=== PATIENT | male | born 1960 | race Caucasian/White ===

== ENCOUNTER 2016-12-09 09:48 | Observation (INO) | payer OTHER ==
--- NOTE | 2016-12-09 10:06 | ER Document Report ---
ED Medical Screen (RME) - General Chief Complaint: Numbness of Face Stated Complaint: RIGHT SIDE FACE AND ARM NUMBNESS Time Seen by Provider: 12/09/16 10:01 Mode of Arrival: Ambulatory Information source: Patient Notes: 56-year-old male presents to ED for right facial shoulder and arm numbness and tingling for about 4-5 seconds. States he felt like his head was in a barrel. States this is all relieved now. States last night he had episode when his heart beat really really fast for a few seconds and then was gone denied any chest pain. States that he has had this several times before but not for as long as it was last night. Has a history of high blood pressure otherwise he is very healthy and takes lisinopril for the high blood pressure. I have greeted and performed a rapid initial assessment of this patient. A comprehensive ED assessment and evaluation of the patient, analysis of test results and completion of medical decision making process will be conducted by an additional ED providers. TRAVEL OUTSIDE OF THE [place] IN LAST 30 DAYS: No - Related Data Allergies/Adverse Reactions: No Known Allergies Allergy (Verified 12/09/16 09:51) Past Medical History - Past Medical History Cardiac Medical History: Reports: Hx Coronary Artery Disease, Hx Hypertension Denies: Hx Heart Attack Pulmonary Medical History: Denies: Hx Asthma, Hx Bronchitis, Hx COPD, Hx Pneumonia Neurological Medical History: Denies: Hx Cerebrovascular Accident, Hx Seizures Renal/ Medical History: Denies: Hx Peritoneal Dialysis Musculoskeltal Medical History: Denies Hx Arthritis - Immunizations Hx Diphtheria, Pertussis, Tetanus Vaccination: No Physical Exam - Vital signs Vitals: Temp Pulse Resp BP Pulse Ox 98.0 F 63 18 136/79 H 98 12/09/16 09:51 12/09/16 09:51 12/09/16 09:51 12/09/16 09:51 12/09/16 09:51 Course - Vital Signs Vital signs: Temp Pulse Resp BP Pulse Ox 98.0 F 63 18 136/79 H 98 12/09/16 09:51 12/09/16 09:51 12/09/16 09:51 12/09/16 09:51 12/09/16 09:51
--- NOTE | 2016-12-09 10:30 | RADIOLOGY REPORT (SQ) ---
EXAM DESCRIPTION: CHEST PA/LAT COMPLETED DATE/TIME: 12/09/2016 10:12 am REASON FOR STUDY: palpitations COMPARISON: None. EXAM PARAMETERS: NUMBER OF VIEWS: two views TECHNIQUE: Digital Frontal and Lateral radiographic views of the chest acquired. RADIATION DOSE: NA LIMITATIONS: none FINDINGS: LUNGS AND PLEURA: No opacities, masses or pneumothorax. No pleural effusion. MEDIASTINUM AND HILAR STRUCTURES: No masses or contour abnormalities. HEART AND VASCULAR STRUCTURES: Heart normal size. No evidence for failure. BONES: No acute findings. HARDWARE: None in the chest. OTHER: No other significant finding. IMPRESSION: NO SIGNIFICANT RADIOGRAPHIC FINDING IN THE CHEST. TECHNICAL DOCUMENTATION: JOB ID: [id number] [employer]- All Rights Reserved
[2016-12-09 10:42] LABS: ABSOLUTE BASOPHILS # (AUTO) 0.1 10^3/uL (0.0-0.2); ABSOLUTE EOSINOPHILS # (AUTO) 0.1 10^3/uL (0.0-0.6); ABSOLUTE LYMPHOCYTES (AUTO) 1.5 10^3/uL (0.5-4.7); ABSOLUTE MONOCYTES (AUTO) 0.6 10^3/uL (0.1-1.4); ABSOLUTE NEUT (AUTO) 4.9 10^3/uL (1.7-8.2); BASOPHILS % (AUTO) 0.8 % (0-2); EOSINOPHILS % (AUTO) 1.9 % (0-6); HEMATOCRIT 40.4 % (37.9-51.0); HEMOGLOBIN 13.7 g/dL (13.5-17.0); HGB HCT DIFFERENCE 0.7; LYMPHOCYTES % (AUTO) 21.1 % (13-45); MEAN CORPUSCULAR HEMOGLOBIN 30.9 pg (27.0-33.4); MEAN CORPUSCULAR VOLUME 91 fl (80-97); MONOCYTES % (AUTO) 8.7 % (3-13); RED BLOOD COUNT 4.44 10^6/uL (4.35-5.55); RED CELL DISTRIBUTION WIDTH 12.9 % (11.5-14.0); SEGMENTED NEUTROPHILS % (AUTO) 67.5 % (42-78); WHITE BLOOD COUNT 7.2 10^3/uL (4.0-10.5)
--- NOTE | 2016-12-09 10:50 | RADIOLOGY REPORT (SQ) ---
EXAM DESCRIPTION: CT HEAD WITHOUT COMPLETED DATE/TIME: 12/09/2016 10:40 am REASON FOR STUDY: numbness tingling to right face shoulder and arm COMPARISON: None. TECHNIQUE: Axial images acquired through the brain without intravenous contrast. Images reviewed wi th bone, brain and subdural windows. Images stored on PACS. All CT scanners at this facility use dose modulation, iterative reconstruction, and/or weight based d osing when appropriate to reduce radiation dose to as low as reasonably achievable (ALARA). [facility]: Dose Right [facility]: CareDose [facility]: Dose Right [facility]: Teradose 4D [facility]: FanDistro RADIATION DOSE: 64.61 mGy. LIMITATIONS: None. FINDINGS: VENTRICLES: Normal size and contour. CEREBRUM: No masses. No hemorrhage. No midline shift. Normal ocampo/white matter differentiation. N o evidence for acute infarction. CEREBELLUM: No masses. No hemorrhage. No alteration of density. No evidence for acute infarction. EXTRAAXIAL SPACES: No fluid collections. No masses. ORBITS AND GLOBE: No intra- or extraconal masses. Normal contour of globe without masses. CALVARIUM: No fracture. PARANASAL SINUSES: No fluid or mucosal thickening. SOFT TISSUES: No mass or hematoma. OTHER: No other significant finding. IMPRESSION: NORMAL BRAIN CT WITHOUT CONTRAST. TECHNICAL DOCUMENTATION: JOB ID: [id number] Quality ID # [id number]: Final reports with documentation of one or more dose reduction techniques (e.g., Au tomated exposure control, adjustment of the mA and/or kV according to patient size, use of iterative reconstruction technique) 2010 [employer]- All Rights Reserved
[2016-12-09 10:58] LABS: PARTIAL THROMBOPLASTIN TIME 27.5 SEC (23.5-35.8); PROTHROMBIN TIME 12.4 SEC (11.4-15.4)
[2016-12-09 11:06] LABS: ALANINE AMINOTRANSFERASE 33 U/L (21-72); ALBUMIN 4.3 g/dL (3.5-5.0); ALKALINE PHOSPHATASE 43 U/L (38-126); ANION GAP 11 (5-19); ASPARTATE AMINO TRANSFERASE 29 U/L (17-59); BILIRUBIN,DIRECT 0.3 mg/dL (0.0-0.4); BILIRUBIN,TOTAL 0.6 mg/dL (0.2-1.3); BLOOD UREA NITROGEN 21 mg/dL (7-20); CALCIUM 9.4 mg/dL (8.4-10.2); CARBON DIOXIDE 25 mmol/L (22-30); CHLORIDE 104 mmol/L (98-107); CREATINE KINASE 327 U/L (55-170); GLUCOSE 96 mg/dL (75-110); POTASSIUM 4.7 mmol/L (3.6-5.0)
[2016-12-09 11:16] LABS: CREATINE KINASE MB 2.47 ng/mL (<4.55)
--- NOTE | 2016-12-09 11:20 | ER Document Report ---
ED Neuro Symptoms/Deficit - General Mode of Arrival: Ambulatory TRAVEL OUTSIDE OF THE [place] IN LAST 30 DAYS: No - HPI Patient complains to provider of: Other - right sided tingling and racing heart Onset: Other - see notes above Duration: Better Loss of consciousness: No loss of consciousness Was STROKE ALERT Called: Yes Baseline Cognitive: Alert, oriented X 3 Baseline Gait: Walks w/o assistance Alert To: Name/Voice Patient Orientation: Person, Place, Time, Events Altered sensation: RUE, R facial Associated symptoms: Other - see notes above <HAILE MILLER - Last Filed: 12/09/16 15:53> <TRISH MENDOZA - Last Filed: 12/09/16 15:55> - General Chief Complaint: Numbness of Face Stated Complaint: RIGHT SIDE FACE AND ARM NUMBNESS Time Seen by Provider: 12/09/16 11:01 Notes: 56 year old male with history of hypertension presents to the ED complaining of tingling from the right face which radiated down to the right hand which started at 0900 this morning while talking to a colleague at work. Patient reports that the tingling lasted for approximately 4-5 seconds, but then dissipated as quickly as it came on. Patient reports to having a 'lightheaded funny feeling' during the episode. Patient denies facial droop, trouble walking , or any pain. Patient additionally reports having a racing heart 2-3 nights ago while resting in bed with no associated shortness of breath. Patient denies a racing heart currently. Patient reports not having a primary care provider for the past year because his provider has moved. (HAILE MILLER) - Related Data Allergies/Adverse Reactions: No Known Allergies Allergy (Verified 12/09/16 09:51) Home Medications: Current Home Medications Lisinopril [Zestril] 10 mg PO DAILY 12/09/16 [History] Past Medical History - General Information source: Patient - Social History Smoking Status: Never Smoker Chew tobacco use (# tins/day): Yes Frequency of alcohol use: Occasional Family History: Other - Father has atrial fibrillation Patient has suicidal ideation: No Patient has homicidal ideation: No - Past Medical History Cardiac Medical History: Reports: Hx Coronary Artery Disease, Hx Hypertension Denies: Hx Heart Attack Neurological Medical History: Denies: Hx Cerebrovascular Accident Renal/ Medical History: Denies: Hx Peritoneal Dialysis Musculoskeltal Medical History: Denies Hx Arthritis Surgical Hx: Negative - Immunizations Hx Diphtheria, Pertussis, Tetanus Vaccination: No <MILLERHAILE - Last Filed: 12/09/16 15:53> Review of Systems - Review of Systems Constitutional: No symptoms reported EENT: No symptoms reported Cardiovascular: See HPI, Heart racing, Lightheaded Respiratory: No symptoms reported Gastrointestinal: No symptoms reported Genitourinary: No symptoms reported Male Genitourinary: No symptoms reported Musculoskeletal: No symptoms reported Skin: No symptoms reported Hematologic/Lymphatic: No symptoms reported Neurological/Psychological: See HPI, Tingling - radiating from right forehead to right hand. denies: Weakness, Gait changes -: Yes All other systems reviewed and negative <MILLERHAILE - Last Filed: 12/09/16 15:53> Physical Exam <HAILE MILLER - Last Filed: 12/09/16 15:53> <TRISH MENDOZA - Last Filed: 12/09/16 15:55> - Vital signs Vitals: Temp Pulse Resp BP Pulse Ox 98.0 F 63 18 136/79 H 98 12/09/16 09:51 12/09/16 09:51 12/09/16 09:51 12/09/16 09:51 12/09/16 09:51 - Notes Notes: GENERAL: Alert, interacts well. No acute distress. HEAD: Normocephalic, atraumatic. EYES: Pupils equal, round, and reactive to light. Extraocular movements intact. ENT: Oral mucosa moist, tongue midline. NECK: Full range of motion. Supple. Trachea midline. LUNGS: Clear to auscultation bilaterally, no wheezes, rales, or rhonchi. No respiratory distress. HEART: Regular rate and rhythm. No murmurs, gallops, or rubs. ABDOMEN: Soft, non-tender. Non-distended. Bowel sounds present in all 4 quadrants. EXTREMITIES: Moves all 4 extremities spontaneously. No edema, radial and dorsalis pedis pulses 2/4 bilaterally. No cyanosis. NEUROLOGICAL: Alert and oriented x3. Normal speech. Cranial nerves II through XII grossly intact. Finger to nose intact, dorsiflexion and plantar flexion normal, 5/5 motor strength, equal benefits counselor, heel-alexandre normal, negative pronator drift, sensation intact. Sharp-dull sensation to the face and right lower extremity intact. Slight decrease to the sharp-dull sensation test to the left medial ankle. PSYCH: Normal affect, normal mood. SKIN: Warm, dry, normal turgor. No rashes or lesions noted. (HAILE MILLER) Course - Laboratory Result Diagrams: 12/09/16 10:15 12/09/16 10:15 - Consults Dr. Mcwilliams Time consulted: 12:30 <HAILE MILLER - Last Filed: 12/09/16 15:53> - Laboratory Result Diagrams: 12/09/16 10:15 12/09/16 10:15 <TRISH MENDOZA - Last Filed: 12/09/16 15:55> - Re-evaluation Re-evalutation: 12/09/16 12:38 The unremarkable, coags normal, CMP grossly unremarkable, thyroid function normal, chest x-ray unremarkable, head CT does not show any acute hemorrhage or signs of a subacute infarction. EKG is nonischemic. Symptoms are suggestive of a TIA as he had right-sided numbness that affected his face and his arm, patient now tells me that he has also been having some intermittent numbness of his right leg over the past few weeks to months. I did discuss this patient with Dr. Mcwilliams who agrees to bring the patient into his service in observation status. Patient has been given aspirin. 12/09/16 12:39 Not a candidate for TPA as all symptoms have resolved. (TRISH MENDOZA) - Vital Signs Vital signs: Temp Pulse Resp BP Pulse Ox 98.0 F 80 18 128/93 H 99 12/09/16 09:51 12/09/16 14:21 12/09/16 14:21 12/09/16 14:21 12/09/16 14:21 - Laboratory Laboratory results interpreted by me: 12/09/16 10:15 BUN 21 H Creatine Kinase 327 H - EKG Interpretation by Me Additional EKG results interpreted by me: 12/09/16 12:39 EKG shows sinus bradycardia at a rate of 55, left axis deviation, normal intervals, T-wave inversions noted in lead III and aVF no ST segment elevations or depressions per my interpretation. (TRISH MENDOZA) - Consults Dr. Mcwilliams Reason for consultation: 12/09/16 12:30 Patient was discussed with Dr. Mcwilliams who will accept the patient to telemetry. (HAILE MILLER) Discharge <HAILE MILLER - Last Filed: 12/09/16 15:53> - Discharge Admitting Provider: Hospitalist - Dr. Mcwilliams Unit Admitted: Telemetry <TRISH MENDOZA - Last Filed: 12/09/16 15:55> - Discharge Clinical Impression: TIA (transient ischemic attack) Qualifiers: Transient cerebral ischemia type: unspecified Qualified Code(s): G45.9 - Transient cerebral ischemic attack, unspecified Condition: Fair Disposition: ADMITTED OBSERVATION Scribe Attestation: 12/09/16 12:40 (TRISH MENDOZA) ED Alteplase Inc/Exc Criteria - Date/Time patient last known well: Date/Time: 84412/09/2016 - Date/Time patient arrived in ED: _: 0948 12/09/2016 - Inclusion Criteria: 1: Patient presented to ED within 3 hours of acute ischemic stroke symptom onset ? -: Yes 2: Did baseline CT exclude intracranial hemorrhage and/or other risk factors? -: Yes 3: Is the age of the patient 18 years of age or greater? -: Yes : If any of the above questions are answered "NO" then stop, patient is not a candidate for Alteplase, : If all of the above questions are answered "YES" then continue with Exclusion Criteria. - Exclusion Criteria: 1: Is there evidence of intracranial hemorrhage on baseline CT? -: No 2: Is there suspicion of subarachnoid hemorrhage (even if CT negative)? -: No 3: Is there a history of serious head trauma, recent previous stroke or IN within 3 months? -: No 4: Does the patient have a clinical presentation consistent with IN or post-IN pericarditis? -: No 5: Is there history of intracranial hemorrhage? -: No 6: On repeated measurement is Systolic BP greater than 185mmHg or Diastolic BP greater that 110 mmHg and is aggressive treatment needed to reduce blood pressure to these limits (e.g. constant infusion of an anti-hypertensive)? -: No 7: Did the patient awake with stroke symptoms? -: No 8: Has the patient had a lumbar puncture or an arterial puncture at a non- compressile site within 7 days? -: No 9: With in the last 14 days did the patient have surgery or major trauma? -: No 10: Is the patient or less than 2 weeks? -: No 11: Was there any active bleeding or acute trauma? -: No 12: Does the patient have intracranial neoplasm, arteriovenous malformation or aneurysm? -: No 13: Does the patient have abnormal glucose (less than 50 or greater than 400mg/ dl)? Record glucose in Comment. -: No 14: Patient has rapidly improving symptoms at the time Alteplase is to be Administered. -: Yes 15: Does the patient have any risks for bleeding, including but not limited to: a.: Current use of Coumadin with PT greater than 15 seconds or INR greater than 1.7. b.: Current use of Pradaxa (Dabigatran). c.: Heparin administereed within the past 48 hours and PTT elevated. d.: Platelet count less than 100,000/mm. e.: Major surgery or serious trauma within 14 days. f.: Gastrointestinal or gynecological urinary bleeding within 14 days. g.: Myocardial Infarction (IN) within 3 months. -: No : If the answer to any of the above questions is "YES" then stop, the patient is not a candidate for Alteplase. : If the answer to all of the above questions is "NO" then the patient may be eligible for the Administration of Alteplase. : If the patient is noted to have seizure activity at onset of Stroke symptoms; Consult Neurologist for further evaluation. - The patient is: -: Included and is eligible to receive Alteplase. *Initiate bed placement at higher level of care* --: No Reviewd risks & benefits of thrombolytic therapy: I have reviewed the risks and benefits of thrombolytic therapy with the patient and/or his/her family. No -: Excluded and not eligible to receive Alteplase for the above exclusions. --: Yes - TIA symptoms resolved -: Excluded and not eligible to receive Alteplase for other reasons (specify in comments): --: No - Diagnosis of TIA: -: Patient presented with transient symptoms that are now resolved and no other neurologic findings are currently present. List symptoms in comments. -: Yes -: Patient is NOT a candidate for tPA. -: No -: DrInga ____(put name in comment) has been consulted for admission and continued evaluation of risk factor assessment. <HAILE MILLER - Last Filed: 12/09/16 15:53> - Diagnosis of TIA: -: Patient presented with transient symptoms that are now resolved and no other neurologic findings are currently present. List symptoms in comments. -: Patient is NOT a candidate for tPA. -: ____(put name in comment) has been consulted for admission and continued evaluation of risk factor assessment. Comment: Oj <TRISH MENDOZA - Last Filed: 12/09/16 15:55> Scribe Documentation - Scribe Written by Scribe:: Ioana Orosco, 12/09/2016 1155 acting as scribe for DrInga:: Anais <HAILE MILLER - Last Filed: 12/09/16 15:53> ED NIH Stroke Scale - NIH Stroke Scale When completed:: Before Alteplase *: 1. NIH scale should be completed with appropriate accompanying assessment tools. *: 2. The NIH should reflect what the patient is capable of doing and should not be coached by the clinician. 1a. Level of Consciousness: 0=Alert;keenly responsive -: 1=Drowsy -: 2=Obtunded -: 3=Coma/unresponsive or reflex to noxious stimuli. 1a. Responses: 0 1b. Orientation Questions: a. What month is it? -: b. How old are you? -: 0=Answers both questions correctly. -: 1=Answers one question correctly or patient is intubated or has orotracheal trauma. -: 2=Answers neither question correctly. 1b. Responses: 0 1c. Response to commands: a. Open and close eyes? -: b. Stamp Pad Maker and release hand? -: Credit is given despite weakness. Demonstration of task is permitted. Substitute command if hands cannot be used. -: 0=Performs both tasks correctly -: 1=Performs one task correctly -: 2=Performs neither task correctly 1c. Responses: 0 2. Gaze: Establish eye contact and instruct patient to "Follow my finger" -: 0=Normal -: 1=Partial gaze palsy. Gaze is abnormal in one or both eyes, but where forced deviation or total gaze paresis is not present. -: 2=Forced deviation or total gaze paresis. 2. Responses: 0 3. Visual Neff: Sees fingers in all four quadrants. -: 0=No visual loss. -: 1=Partial hemianopsia. -: 2=Complete hemianopsia. -: 3=Bilateral hemianopsia (including Cortical blindness) 3. Responses: 0 4. Facial Movement: Instruct patient to: -: a. Show me your teeth -: b. Raise your eyebrows -: c. Close your eyes -: d. Smile -: 0=Normal symmetrical movement -: 1=Minor paralysis (flattened nasolabial fold, asymmetry on smiling). -: 2=Partial paralysis (total or near total paralysis of lower face). -: 3=Complete paralysis of upper and lower face 4. Responses: 0 5. Motor functions (left arm): Alternate sides and extend each arm with palms down (90 degrees if sitting or 45 degrees for supine). -: 0=No drift;limb holds for full 10 seconds. -: 1=Drift; limb holds but drifts down before full 10 seconds, but does not hit bed. -: 2=Some effort against gravity; limb cannot get to or maintain position. -: 3=No effort against gravity; limb falls. -: 4=No movement. -: UN=Amputation, joint fusion, explain in comments. 5. Responses (left arm): 0 5. Motor Functions (right arm): Alternate sides and extend each arm with palms down (90 degrees if sitting or 45 degrees for supine). -: 0=No drift;limb holds for full 10 seconds. -: 1=Drift; limb holds but drifts down before full 10 seconds, but does not hit bed. -: 2=Some effort against gravity; limb cannot get to or maintain position. -: 3=No effort against gravity; limb falls. -: 4=No movement. -: UN=Amputation, joint fusion, explain in comments. 5. Responses (right arm): 0 6. Motor Functions (left leg): With patient lying supine, alternate sides and extend each leg (30 degrees always while supine). -: 0=No drift, leg holds position for full 5 seconds -: 1=Drift; leg falls before full 5 seconds but does not hit bed. -: 2=Some effort against gravity, leg falls to bed but some effort against gravity. -: 3=No effort against gravity, leg falls to bed immediately. -: 4=No movement. -: UN=Amputation, joint fusion; explain in comments. 6. Responses (left leg): 0 6. Motor Functions (right leg): With patient lying supine, alternate sides and extend each leg (30 degrees always while supine). -: 0=No drift, leg holds position for full 5 seconds -: 1=Drift; leg falls before full 5 seconds but does not hit bed. -: 2=Some effort against gravity, leg falls to bed but some effort against gravity. -: 3=No effort against gravity, leg falls to bed immediately. -: 4=No movement. -: UN=Amputation, joint fusion; explain in comments. 6. Responses (right leg): 0 7. Limb Ataxia: With eyes open instruct patient to: -: a. "Touch your finger to your nose". -: b. "Touch your heel to your alexandre" -: 0=Absent -: 1=Present in one limb. -: 2=Present in two limbs. -: UN=Amputation or joint fusion; explain in comments. 7. Responses: 0 8. Sensory: Test sensation using pinprick or noxious stimuli. Test as many body parts as possible. -: 0=Normal;no sensory loss -: 1=Mile to moderate sensory loss (patient feels pin prick but is less sharp on affected side). -: 2=Severe or total sensory loss. 8. Responses: 1 - Decreased sharp dull sensation to approximately a 2 cm patch in the medial aspect of the right ankle. 9. Best Language: Instruct patient to: -: a. "Describe what you see in this picture." -: b. "Name the items in this picture." -: c. "Read these sentences." -: 0=No aphasia, normal -: 1=Mild to moderate aphasia. -: 2=Severe aphasia -: 3=Mute, global aphasia, no usable speech or auditory comprehension. 9. Responses: 0 10. Articulation, Dysarthia: Instruct patient to: -: "Read these words" or "Repeat these words" -: 0=Normal -: 1=Mild to moderate; patient may slur some words but can be understood without difficulty. -: 2=Severe; patients speech so slurred as to be unintelligible in the absence of dysphasia. -: UN=Intubated or other physical barrier, explain in comments. 10. Responses: 0 11. Extinction or inattention: 0=No abnormality -: 1= Visual, tactile, auditory, spatial, or personal inattention or extinction to bilateral simulation in one or the sensory modalities. -: 2=Profound elaina-inattention or elaina-inattention to more than one modality; does not recognize own hand. 11. Responses: 0 Total Score: 1 <TRISH MENDOZA - Last Filed: 12/09/16 15:55>
[2016-12-09 11:23] LABS: TROPONIN I < 0.012 ng/mL
[2016-12-09] MEDS ORDERED: ASPIRIN 325 MG TABLET PO ONE (11:23)
[2016-12-09] MEDS ORDERED: ACETAMINOPHEN 325 MG TABLET PO PRN (15:10)
[2016-12-09] MEDS ORDERED: DOCUSATE SODIUM 100 MG CAPSULE PO PRN (15:10)
[2016-12-09] MEDS ORDERED: ONDANSETRON HCL INJ/PF 4 MG/2 ML SDV IV PRN (15:10)
--- NOTE | 2016-12-09 15:34 | PDOC H&P ---
History of Present Illness Admission Date/PCP: 12/09/16 13:10 Patient complains of: facial numbness History of Present Illness: CONNIE ESCALERA is a 56 year old male, with hypertension, presents to the hospital because of numbness and tingling sensation on the right side of the face that went down to over the shoulder and right upper extremity. It lasted only for 5 seconds and symptoms went away completely. There is no swallowing difficulty or slurring of speech or any focal weakness. Patient felt lightheaded and anxious. Patient thought he was having strokelike symptoms so he went to the emergency room for evaluation and was referred for admission. Patient symptomatologies has resolved. No other associated symptoms. Patient reports being athletic and does a lot of jogging and running with , without any symptoms or problems. Past Medical History Cardiac Medical History: Reports: Hypertension Denies: Myocardial Infarction Pulmonary Medical History: Denies: Asthma, Bronchitis, Chronic Obstructive Pulmonary Disease (COPD), Pneumonia Neurological Medical History: Denies: Seizures Musculoskeltal Medical History: Denies: Arthritis Hematology: Denies: Anemia Past Surgical History Past Surgical History: Reports: Orthopedic Surgery - R shoulder surgery Social History Information Source: Patient Smoking Status: Never Smoker Frequency of Alcohol Use: None Hx Recreational Drug Use: No Drugs: None Family History Family History: Other - Father has atrial fibrillation, heart disease Parental Family History Reviewed: Yes Children Family History Reviewed: Yes Sibling(s) Family History Reviewed.: Yes Medication/Allergy Home Medications: Lisinopril [Zestril] 10 mg PO DAILY 12/09/16 Allergies/Adverse Reactions: No Known Allergies Allergy (Verified 12/09/16 09:51) Review of Systems Constitutional: ABSENT: chills, fever(s), headache(s), night sweats, weakness, weight gain, weight loss Eyes: ABSENT: visual disturbances Ears: ABSENT: hearing changes Nose, Mouth, and Throat: ABSENT: mouth pain, sore throat Cardiovascular: ABSENT: chest pain, dyspnea on exertion, edema, orthropnea, palpitations Respiratory: ABSENT: cough, dyspnea, hemoptysis Gastrointestinal: ABSENT: abdominal pain, constipation, diarrhea, hematemesis, hematochezia, melena, nausea, vomiting Genitourinary: ABSENT: difficulty urinating, dysuria, hematuria Musculoskeletal: ABSENT: joint swelling Integumentary: ABSENT: pruritus, rash, wounds Neurological: PRESENT: dizziness - more on lightheadedness. ABSENT: abnormal gait, abnormal speech, confusion, focal weakness, frequent falls, syncope Psychiatric: ABSENT: anxiety, depression, homidical ideation, suicidal ideation Endocrine: ABSENT: cold intolerance, heat intolerance, polydipsia, polyphagia, polyuria Hematologic/Lymphatic: ABSENT: easy bleeding, easy bruising Physical Exam Vital Signs: Temp Pulse Resp BP Pulse Ox 98.0 F 80 18 128/93 H 99 12/09/16 09:51 12/09/16 14:21 12/09/16 14:21 12/09/16 14:21 12/09/16 14:21 General appearance: PRESENT: no acute distress, well-developed, well-nourished Head exam: PRESENT: atraumatic, normocephalic Eye exam: PRESENT: conjunctiva pink, EOMI, PERRLA. ABSENT: scleral icterus Ear exam: PRESENT: normal external ear exam Mouth exam: PRESENT: moist, tongue midline Neck exam: ABSENT: carotid bruit, JVD, lymphadenopathy, thyromegaly Respiratory exam: PRESENT: clear to auscultation kimo. ABSENT: rales, rhonchi, wheezes Cardiovascular exam: PRESENT: RRR. ABSENT: diastolic murmur, rubs, systolic murmur Pulses: PRESENT: normal dorsalis pedis pul Vascular exam: PRESENT: normal capillary refill GI/Abdominal exam: PRESENT: normal bowel sounds, soft. ABSENT: distended, guarding, mass, organolmegaly, rebound, tenderness Rectal exam: PRESENT: deferred Extremities exam: PRESENT: full ROM. ABSENT: calf tenderness, clubbing, pedal edema Neurological exam: PRESENT: alert, awake, oriented to person, oriented to place , oriented to time, oriented to situation, CN II-XII grossly intact. ABSENT: motor sensory deficit Psychiatric exam: PRESENT: appropriate affect, normal mood. ABSENT: homicidal ideation, suicidal ideation Skin exam: PRESENT: dry, intact, warm. ABSENT: cyanosis, rash Results Impressions: Chest X-Ray 12/09/16 10:02 IMPRESSION: NO SIGNIFICANT RADIOGRAPHIC FINDING IN THE CHEST. Head CT 12/09/16 10:03 IMPRESSION: NORMAL BRAIN CT WITHOUT CONTRAST. Assessment & Plan - Diagnosis (1) TIA (transient ischemic attack) Qualifiers: Transient cerebral ischemia type: unspecified Qualified Code(s): G45.9 - Transient cerebral ischemic attack, unspecified Is this a current diagnosis for this admission?: Yes (2) Essential hypertension Is this a current diagnosis for this admission?: Yes - Time Time Spent: 30 to 50 Minutes Anticipated discharge: Home Within: within 24 hours - Plan Summary Plan Summary: Carotid doppler, cervical spine X-Ray, 2D-echocardiogram. Begin aspirin. Continue lisinopril. Check lipid panel and HgbA1C.
[2016-12-09] MEDS ORDERED: ENOXAPARIN SODIUM INJ 40 MG/0.4 ML DISP.SYRIN SUBCUT ONE (16:00)
--- NOTE | 2016-12-09 16:03 | RADIOLOGY REPORT (SQ) ---
EXAM DESCRIPTION: CERV SP 4 OR 5 VIEWS COMPLETED DATE/TIME: 12/09/2016 3:52 pm REASON FOR STUDY: cervical pain COMPARISON: None. NUMBER OF VIEWS: Five views. TECHNIQUE: AP, lateral, obliques and odontoid radiographic images acquired of the cervical spine. LIMITATIONS: None. FINDINGS: MINERALIZATION: Normal. ALIGNMENT: There is straightening of the cervical spine. VERTEBRAE: Vertebral bodies of normal height. DISCS: Disc spaces are narrowed at C5-6 to a mild degree and slightly more at C6-7. FORAMINA: There is narrowing of the neural foramina bilaterally at C6-7 secondary to the presence of uncovertebral osteophytes. LATERAL AND POSTERIOR ELEMENTS: Facets, lateral masses and spinous processes without significant find ings. HARDWARE: None in the spine. SOFT TISSUES: No masses or calcifications. Lung apices clear. OTHER: No other significant finding. IMPRESSION: 1. Straightening of cervical spine and may indicate muscle spasm or may be secondary to positioning. 2. Degenerative disc changes and spondylosis at C6-7. TECHNICAL DOCUMENTATION: JOB ID: [id number] [employer]- All Rights Reserved
--- NOTE | 2016-12-09 17:02 | EKG REPORT ---
SEVERITY:- BORDERLINE ECG - SINUS RHYTHM BORDERLINE T ABNORMALITIES, INFERIOR LEADS : Confirmed by: Jackson Butt 09-Dec-2016 17:02:36
--- NOTE | 2016-12-09 17:44 | RADIOLOGY REPORT (SQ) ---
EXAM DESCRIPTION: CAROTID DOPPLER COMPLETED DATE/TIME: 12/09/2016 5:31 pm REASON FOR STUDY: TIA/CVA COMPARISON: None. TECHNIQUE: Grayscale ultrasound, Doppler velocity and spectra, and color Doppler images acquired of the extra-cranial carotid and vertebral arteries. Images stored on PACS. LIMITATIONS: None. FINDINGS: RIGHT CAROTID CCA Velocities: Peak systolic proximal 0.98 peak systolic distal 0.84 peak diastolic 0.2 ICA Velocities Peak systolic 0.55 m/s. End diastolic 0.24 m/s. Proximal ICA/CCA peak systolic ratio 0.65. Spectra normal. No significant plaque. LEFT CAROTID CCA Velocities: Peak systolic proximal .94 peak systolic distal .93 diastolic proximal .21 diastolic distal 0.28 ICA Velocities Peak systolic 0.65 m/s. End diastolic 0.28 m/s. Proximal ICA/CCA peak systolic ratio 0.7. Spectra normal. No significant plaque. VERTEBRAL ARTERIES: Antegrade flow. Normal waveforms. SUBCLAVIAN ARTERIES: No finding. OTHER: No other significant finding. IMPRESSION: Normal study. COMMENT: Quality ID #[id number]: Velocity criteria are extrapolated from the diameter data as defined by t he Society of Radiologists in Ultrasound Consensus Conference. Radiology 2003: 229; 340-346. TECHNICAL DOCUMENTATION: JOB ID: [id number] [employer]- All Rights Reserved
[2016-12-10 05:22] LABS: CHOLESTEROL 188.45 mg/dL (0-200); Direct HDL 44 mg/dL (>40); TRIGLYCERIDES 137 mg/dL (<150)
[2016-12-10 05:34] LABS: DIRECT LDL 99 mg/dL (<100)
[2016-12-10] MEDS ORDERED: LANSOPRAZOLE 30 MG TAB.RAP.DR PO SCH (06:00)
[2016-12-10] MEDS ORDERED: ENOXAPARIN SODIUM INJ 40 MG/0.4 ML DISP.SYRIN SUBCUT SCH (08:00)
[2016-12-10] MEDS ORDERED: LISINOPRIL 10 MG TABLET PO SCH (10:00)
[2016-12-10] MEDS ORDERED: ASPIRIN 325 MG TABLET PO SCH (10:00)
[2016-12-10 10:23] VITALS: BP 122/75
--- NOTE | 2016-12-10 10:23 | PDOC DISCHARGE SUMMARY ---
General - Admit/Disc Date/PCP Admission Date/Primary Care Provider: 12/09/16 13:10 Discharge Date: 12/10/16 - Discharge Diagnosis (1) Right facial numbness Is this a current diagnosis for this admission?: Yes (2) Right upper extremity numbness Is this a current diagnosis for this admission?: Yes (3) Essential hypertension Is this a current diagnosis for this admission?: Yes - Additional Information Resuscitation Status: Full Code Home Medications: Lisinopril [Zestril] 10 mg PO DAILY 12/09/16 Additional Information: Echocardiogram and 30 day event recorder as outpatient with Dr. Altman History of Present Illness Patient complains of: Numbness on the right side of the face and upper extremity History of Present Illness: CONNIE ESCALERA is a 56 year old male, with hypertension, presents to the hospital because of numbness and tingling sensation on the right side of the face that went down to over the shoulder and right upper extremity. It lasted only for 5 seconds and symptoms went away completely. There is no swallowing difficulty or slurring of speech or any focal weakness. Patient felt lightheaded and anxious. Patient thought he was having strokelike symptoms so he went to the emergency room for evaluation and was referred for admission. Patient symptomatologies has resolved. No other associated symptoms. Patient reports being athletic and does a lot of jogging and running with , without any symptoms or problems. Hospital Course Hospital Course: The patient was admitted to observation. The patient was placed on aspirin. Carotid Doppler was obtained and it was normal. There was no further symptomatology noted. 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 The patient's lipid panel were normal. Patient was advised to have an event recorder as outpatient to rule out paroxysmal atrial fibrillation. He was advised to have echocardiogram as outpatient basis as well. He wants to continue workup on an outpatient basis. Physical Exam Vital Signs: Temp Pulse Resp BP Pulse Ox 97.6 F 50 L 16 113/73 99 12/10/16 07:25 12/10/16 07:25 12/10/16 07:25 12/10/16 07:25 12/10/16 07:25 Intake & Output 12/09/16 12/10/16 12/11/16 06:59 06:59 06:59 Intake Total 105 Balance 105 Weight 97 kg General appearance: PRESENT: no acute distress, cooperative Head exam: PRESENT: normocephalic Eye exam: PRESENT: EOMI Mouth exam: PRESENT: moist, neck supple Neck exam: ABSENT: JVD Respiratory exam: PRESENT: clear to auscultation kimo. ABSENT: rhonchi, wheezes Cardiovascular exam: PRESENT: RRR. ABSENT: gallop GI/Abdominal exam: PRESENT: soft. ABSENT: distended Extremities exam: ABSENT: pedal edema Neurological exam: PRESENT: alert, awake, oriented to person, oriented to place , oriented to time, oriented to situation Skin exam: PRESENT: dry, warm. ABSENT: cyanosis Results Laboratory Results: 12/10/16 04:23 Triglycerides 137 Cholesterol 188.45 LDL Cholesterol Direct 99 VLDL Cholesterol 27.0 HDL Cholesterol 44 Impressions: Cervical Spine X-Ray 12/09/16 00:00 IMPRESSION: 1. Straightening of cervical spine and may indicate muscle spasm or may be secondary to positioning. 2. Degenerative disc changes and spondylosis at C6-7. Chest X-Ray 12/09/16 10:02 IMPRESSION: NO SIGNIFICANT RADIOGRAPHIC FINDING IN THE CHEST. Head CT 12/09/16 10:03 IMPRESSION: NORMAL BRAIN CT WITHOUT CONTRAST. Carotid Doppler Study 12/09/16 15:16 IMPRESSION: Normal study. Qualifiers PATEINT BEING DISCHARGED WITH ANY OF THE FOLLOWING DIAGNOSIS?: No Plan Discharge Plan: Follow-up with primary care physician in 1 week. Time Spent: Less than 30 Minutes
== END 2016-12-10 10:45 | disposition home or self-care (01) ==
LOC: ER 09:48 → EH 13:10 → 3W 19:25
PROVIDERS: ADMIT Internal Medicine; ATTEND Internal Medicine
DX: R20.0 Anesthesia of skin (principal); I10 Essential (primary) hypertension; R42 Dizziness and giddiness; M47.892 Other spondylosis, cervical region; R20.2 Paresthesia of skin; I25.10 Atherosclerotic heart disease of native coronary artery without angina pectoris; R00.1 Bradycardia, unspecified; Z98.890 Other specified postprocedural states; Z79.899 Other long term (current) drug therapy; Z82.49 Family history of ischemic heart disease and other diseases of the circulatory system; Z72.0 Tobacco use
CPT/HCPCS: 93005; 99285; 36415 ×2; 82553; 82550; 83735; 84443; 85025; 85610; 85730; 80053; 84484; 83036; 80061; 93880; 72050; 71020; 70450; 93010; G0378 ×3; J3490 ×2

== ENCOUNTER → 2017-03-16 | Outpatient (CLI) | payer OTHER ==
[2017-03-16 10:27] LABS: ABSOLUTE EOSINOPHILS # (AUTO) 0.1 10^3/uL (0.0-0.6); ABSOLUTE LYMPHOCYTES (AUTO) 1.4 10^3/uL (0.5-4.7); ABSOLUTE MONOCYTES (AUTO) 0.5 10^3/uL (0.1-1.4); BASOPHILS % (AUTO) 0.7 % (0-2); HEMATOCRIT 39.9 % (37.9-51.0); HEMOGLOBIN 13.5 g/dL (13.5-17.0); HGB HCT DIFFERENCE 0.6; LYMPHOCYTES % (AUTO) 23.6 % (13-45); MEAN CORPUSCULAR HGB CONC 33.8 g/dL (32.0-36.0); MEAN CORPUSCULAR VOLUME 92 fl (80-97); MONOCYTES % (AUTO) 8.8 % (3-13); RED BLOOD COUNT 4.35 10^6/uL (4.35-5.55); RED CELL DISTRIBUTION WIDTH 12.7 % (11.5-14.0); SEGMENTED NEUTROPHILS % (AUTO) 64.9 % (42-78); WHITE BLOOD COUNT 6.1 10^3/uL (4.0-10.5)
[2017-03-16 10:37] LABS: ALANINE AMINOTRANSFERASE 32 U/L (21-72); ALBUMIN 4.2 g/dL (3.5-5.0); ALKALINE PHOSPHATASE 50 U/L (38-126); ANION GAP 7 (5-19); ASPARTATE AMINO TRANSFERASE 29 U/L (17-59); BILIRUBIN,DIRECT 0.3 mg/dL (0.0-0.4); BILIRUBIN,TOTAL 0.6 mg/dL (0.2-1.3); BLOOD UREA NITROGEN 25 mg/dL (7-20); CALCIUM 9.6 mg/dL (8.4-10.2); CARBON DIOXIDE 26 mmol/L (22-30); CHLORIDE 105 mmol/L (98-107); CHOLESTEROL 216.29 mg/dL (0-200); CREATININE RESULT 1.09 mg/dL (0.52-1.25); Direct HDL 53 mg/dL (>40); GLUCOSE 95 mg/dL (75-110); POTASSIUM 4.9 mmol/L (3.6-5.0); SODIUM 138.1 mmol/L (137-145); TOTAL PROTEIN 6.7 g/dL (6.3-8.2); TRIGLYCERIDES 79 mg/dL (<150)
[2017-03-16 10:48] LABS: DIRECT LDL 140 mg/dL (<100)
== END ==
LOC: OD 09:35
PROVIDERS: ATTEND Internal Medicine Cardiovascular Disease
DX: Z00.00 Encounter for general adult medical examination without abnormal findings (principal); R73.03 Prediabetes; Z12.5 Encounter for screening for malignant neoplasm of prostate
CPT/HCPCS: 36415; 80053; 80061; 83036; 84443; 85025

== ENCOUNTER → 2018-03-19 | Outpatient (CLI) | payer OTHER ==
[2018-03-19 12:56] LABS: ALANINE AMINOTRANSFERASE 37 U/L (21-72); ALBUMIN 4.2 g/dL (3.5-5.0); ALKALINE PHOSPHATASE 41 U/L (38-126); ANION GAP 8 (5-19); ASPARTATE AMINO TRANSFERASE 39 U/L (17-59); BILIRUBIN,DIRECT 0.2 mg/dL (0.0-0.4); BILIRUBIN,TOTAL 0.7 mg/dL (0.2-1.3); BLOOD UREA NITROGEN 17 mg/dL (7-20); CALCIUM 9.4 mg/dL (8.4-10.2); CARBON DIOXIDE 26 mmol/L (22-30); CHLORIDE 103 mmol/L (98-107); CHOLESTEROL 190.35 mg/dL (0-200); GLUCOSE 84 mg/dL (75-110); POTASSIUM 4.5 mmol/L (3.6-5.0); SODIUM 137.3 mmol/L (137-145); TOTAL PROTEIN 6.8 g/dL (6.3-8.2); TRIGLYCERIDES 75 mg/dL (<150)
[2018-03-19 13:07] LABS: DIRECT LDL 115 mg/dL (<100)
== END ==
LOC: OD 11:19
PROVIDERS: ATTEND Family Medicine
DX: Z13.1 Encounter for screening for diabetes mellitus (principal); Z12.5 Encounter for screening for malignant neoplasm of prostate; Z13.220 Encounter for screening for lipoid disorders
CPT/HCPCS: 36415; 80053; 80061; 84153